=== PATIENT | female | born 1950 | race African-American/Black ===

== ENCOUNTER 2018-03-15 15:58 | Emergency (ER) | payer OTHER ==
[2018-03-15 16:06] VITALS: TEMP 98; BMI 29.0
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
[2018-03-15] MEDS ORDERED: ACETAMINOPHEN 325 MG TABLET (FP) PO ONE (16:50)
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
[2018-03-15] MEDS ORDERED: ACETAMINOPHEN 325 MG TABLET (FP) ONE (18:09)
[2018-03-15 19:18] VITALS: BP 128/65; PULSE 62
== END 2018-03-15 19:18 | disposition home or self-care (01) ==
LOC: JER 15:58
DX: S09.90XA Unspecified injury of head, initial encounter (principal); V03.10XA Pedestrian on foot injured in collision with car, pick-up truck or van in traffic accident, initial encounter; Y93.89 Activity, other specified; Y92.410 Unspecified street and highway as the place of occurrence of the external cause; I10 Essential (primary) hypertension; E78.00 Pure hypercholesterolemia, unspecified; I48.91 Unspecified atrial fibrillation
CPT/HCPCS: 70450-TC; 99282-25